=== PATIENT | male | born 1960 | race Caucasian/White ===

== ENCOUNTER → 2016-05-29 | Outpatient (CLI) | payer SELFPAY ==
[~2016-05-29] MED LIST: ALLOPURINOL100 MG PO; CLARITIN 10MG T10 MG PO; DOCUSATE SODIUM1 TA3 PO; FAMOTIDINE 20MG20 MG PO; PROCHLORPERAZIN10 MG PO
--- NOTE | 2016-05-29 12:26 | RADIOLOGY REPORT PS360 ---
CHEST(2 VIEWS-NOT PORTABLE) ORDERING PHYSICIAN : LIAM VALERIO APRN PATIENT AGE: 55 years GENDER: Male INDICATION: SO TECHNIQUE: PA and lateral chest. COMPARISON: No previous FINDINGS Diffuse density lower left chest obscures left hemidiaphragm . This reflects dense airspace diseas & consolidation at left lung base,, with air bronchograms leading towards LLL; along with a left pleural effusion. Pleural fluid continues along the left chest tracking overlying the left mid and upper chest and contributing to the overall density at left base, including obscuring left CP angle. Question a small focal infiltrate or density at the left upper lobe. Follow-up will be important. Low threshold for CT may be of benefit to exclude other processes particularly if the findings do not clear or improved The right lung appears clear with only mild atelectasis. Mild vascular engorgement. . The left heart border is obscured by suspect there is mild cardiomegaly. Visualized right Hilar is generous upper normal. . Superior mediastinum unremarkable. T-spine with degenerative changes. Chest wall unremarkable IMPRESSION 1. Prominent density throughout the left mid & lower chest, which totally obscure left hemidiaphragm and left heart heart border.. Reflects dense consolidation throughout left lung base, along with moderate left pleural effusion. Presumably bases of pneumonia but follow-up will be important to exclude underlying lesion. If Symptoms do not probably improved low threshold for CT recommended. 2. Question minimal patchy infiltrate also at left upper lobe 3. Borderline/mild cardiomegaly. Mild vascular engorgement Lorenza Please fax report and notify office, & document. Thank you
== END ==
LOC: RAD 10:44
DX: R06.02 Shortness of breath (principal)
CPT/HCPCS: Q9967